=== PATIENT | male | born 2000 | race Caucasian/White ===

== ENCOUNTER 2022-01-06 18:35 | Emergency (ER) | payer OTHER ==
[2022-01-06] MEDS ORDERED: CEPHALEXIN500 MG PO (20:06)
[2022-01-06] MEDS ORDERED: BACTRIM DS TAB1 EACH PO (20:06)
== END 2022-01-06 20:12 | disposition home or self-care (01) ==
LOC: ER1 18:35
DX: L03.115 Cellulitis of right lower limb (principal); L02.415 Cutaneous abscess of right lower limb; F17.210 Nicotine dependence, cigarettes, uncomplicated
CPT/HCPCS: 99282